=== PATIENT | female | born 1950 | race Caucasian/White ===

== ENCOUNTER 2017-01-11 18:55 | Inpatient (IN) | payer OTHER, MEDICARE ==
[2017-01-11] VITALS (8 sets, daily range): BP systolic 102–130; BP diastolic 53–72; PULSE 116–131; RESP 18–20; TEMP 98.7; O2SAT 89–95
[~2017-01-11] VITALS: Ht 162.6 cm; Wt 64.4 kg
[~2017-01-11 18:55] MED LIST: ALBU1.25 NEB; GLIM1TAB PO; LEVO750T33 PO; LISI10TA3 PO; METF1000 PO; METR500T10 PO; NIFE30TA8 PO; PRED10 PO; UMEC1AER INH; VENTAER INH
[2017-01-11] MEDS ORDERED: RESP: ALBUTEROL 2.5 MG/IPRATROPIUM 0.5 MG NEB (SCH) NEB ONE (19:45)
[2017-01-11] MEDS ORDERED: SODIUM CHLORIDE 0.9% FLUSH 10 ML FLUSH IVF PRN (19:45)
[2017-01-11] MEDS ORDERED: SODIUM CHLOR 0.9% 1000 ML INJ 1,000 ML IV ONE (19:45)
[2017-01-11 20:11] LABS: AUTOMATED NEUTROPHIL # 18.5 TH/MM3 (1.8-7.7); BASOPHIL # 0.8 TH/MM3 (0-0.2); BASOPHIL % 3.2 % (0.0-2.0); EOSINOPHIL # 2.6 TH/MM3 (0-0.4); EOSINOPHIL % 10.6 % (0.0-4.0); HEMATOCRIT 42.8 % (35.0-46.0); LYMPH % 4.8 % (9.0-44.0); LYMPHOCYTE # 1.2 TH/MM3 (1.0-4.8); MEAN CELL VOLUME 85.4 FL (80.0-100.0); MEAN CORPUSCULAR HEMOGLOBIN 27.8 PG (27.0-34.0); MEAN CORPUSCULAR HGB CONC 32.6 % (32.0-36.0); MONO % 4.2 % (0.0-8.0); NEUT % 77.2 % (16.0-70.0); PLATELET COUNT 361 TH/MM3 (150-450); RED BLOOD COUNT 5.01 MIL/MM3 (4.00-5.30); RED CELL DISTRIBUTION WIDTH 13.5 % (11.6-17.2); WHITE BLOOD COUNT 24.1 TH/MM3 (4.0-11.0)
[2017-01-11 20:12] LABS: HEMO FLAGS AUTO DIFF
[2017-01-11 20:18] LABS: CHLORIDE 95 MEQ/L (98-107); POTASSIUM 3.9 MEQ/L (3.5-5.1); SODIUM (NA) 134 MEQ/L (136-145)
[2017-01-11 20:22] LABS: ANION GAP 6 MEQ/L (5-15); BICARBONATE 33.4 MEQ/L (21.0-32.0); BLOOD UREA NITROGEN 9 MG/DL (7-18)
[2017-01-11 20:23] LABS: BLOOD, URINE SMALL (NEG); GLUCOSE,URINE 100 mg/dL (NEG); KETONE, URINE NEG (NEG); NITRITE,URINE NEG (NEG); PH, URINE 5.5 (5.0-8.5)
[2017-01-11 20:25] LABS: ALT (GPT) 12 U/L (10-53); APTT (PATIENT) 31.5 SEC (24.3-30.1); AST (GOT) 28 U/L (15-37); GLOMERULAR FILTRATION RATE 88 ML/MIN (>89); INTERNATIONAL NORMALIZED RATIO 1.2 RATIO; PROTHROMBIN TIME - PATIENT 12.8 SEC (9.8-11.6)
[2017-01-11 20:27] LABS: TOTAL BILIRUBIN ADULT 0.7 MG/DL (0.2-1.0)
[2017-01-11 20:28] LABS: ALKALINE PHOSPHATASE 92 U/L (45-117)
[2017-01-11] MEDS ORDERED: cefTRIAXone INJ 1,000 MG in SODIUM CHLORIDE 0.9% INJ 100 ML IV ONE (20:30)
[2017-01-11] MEDS ORDERED: LEVOFLOXACIN 750 MG PREMIX INJ 150 ML IV ONE (20:30)
[2017-01-11 20:34] LABS: PLATELET ESTIMATE SMEAR NORMAL (NORMAL); PLATELET MORPHOLOGY NORMAL (NORMAL); SCAN/DIFF AUTO DIFF CONFIRMED
[2017-01-11 20:37] LABS: MUCUS URINE MOD /lpf (OCC); URINE COLOR AMBER (YELLW/STRAW)
[2017-01-11 20:38] LABS: CREATINE KINASE 20 U/L (26-192)
[2017-01-11 20:38] LABS: BACTERIA, URINE MANY /hpf; CALCIUM OXALATE CRYSTALS,URINE OCC /hpf; COMMENT (UR) CULTURE INDICATED; CULTURE IF INDICATED CULTURE INDICATED; SQUAMOUS EPITHELIAL CELL URINE 0-5 /hpf (0-5)
[2017-01-11] MEDS ORDERED: SODIUM CHLORID 0.9% 500 ML INJ 500 ML IV ONE (21:15)
--- NOTE | 2017-01-11 21:25 | RADRPT ---
EXAM DATE/TIME: 01/11/2017 21:15 [place] COMPARISON: CT NEEDLE BIOPSY LUNG, LEFT, April 06, 2016, 9:50. CHEST EXPIRATION ONLY, April 06, 2016, 13:0 2. CHEST SINGLE AP, April 02, 2016, 8:22. INDICATIONS : Short of breath. MEDICAL HISTORY : Hypertension. Myocardial infarction. Diabetes mellitus type II. COPD. SURGICAL HISTORY : Appendectomy. Hysterectomy. ENCOUNTER: Initial ACUITY: 2 days PAIN SCORE: 0/10 LOCATION: Bilateral chest FINDINGS: A single view of the chest demonstrates diffuse consolidation and/or mass in the left perihilar area. There is diffuse patchy infiltrate throughout most of the right lower lung. The heart size is stable . No significant pleural effusions. No pneumothorax. Bony structures are stable.. CONCLUSION: 1. Large diffuse parenchymal consolidation or mass in the left perihilar area. 2. Prominent diffuse infiltrate throughout most of the right lower lung. Jose Elias Doll MD on January 11, 2017 at 21:22 Board Certified Radiologist. This report was verified electronically.
--- NOTE | 2017-01-11 21:41 | PD ---
HPI Chief Complaint: General Weakness Time Seen by Provider: 19:25 Travel History International Travel<30 days: No Contact w/Intl Traveler<30days: No Traveled to known affect area: No History of Present Illness HPI Patient is a 66-year-old female with history of metastatic lung cancer who comes in due to weakness. Patient fell earlier today and was unable to get herself off of the ground. She says she was trying to climb a step and she slipped and fell onto her legs. She denies hitting her head or any loss of consciousness. She says she was unable to get herself up after the incident occurred. She denies any pain from the fall. She says the only pain she has is pain in her lungs, which she has had since developing the cancer. She is not currently receiving treatment for the cancer. She has not had any fever or chills. She has some shortness of breath, which has been chronic for her. She wears oxygen at home at 3 L. PFSH Past Medical History Hx Anticoagulant Therapy: Yes (ASA 81MG TOOK TODAY) Cancer: Yes Cardiovascular Problems: Yes Congestive Heart Failure: No COPD: Yes Coronary Artery Disease: No Diabetes: Yes Patient Takes Glucophage: No Diminished Hearing: No Endocrine: Yes Genitourinary: No Hypertension: Yes Musculoskeletal: No Neurologic: No Psychiatric: No Reproductive: No Respiratory: Yes Integumentary: Yes (PSORIASIS) Myocardial Infarction: Yes (X2) Sleep Apnea: Yes Influenza Vaccination: Yes ?: Not Menopausal: Yes : 1 Para: 1 Past Surgical History Appendectomy: Yes Gynecologic Surgery: Yes (HYSTERECTOMY, MELANOMA) Hysterectomy: Yes Other Surgery: Yes Social History Alcohol Use: Yes (RARELY) Tobacco Use: No Substance Use: No Allergies-Medications (Allergen,Severity, Reaction): Coded Allergies: codeine (Verified Allergy, Severe, PASSED OUT , N/V, 01/11/17) morphine (Verified Allergy, Severe, PASSED OUT, N/V, 01/11/17) penicillin G (Verified Allergy, Severe, PASSED OUT, N/V, 01/11/17) Reported Meds & Prescriptions Reported Meds & Active Scripts Active Metronidazole 500 Mg Tab 500 Mg PO TID 3 Days Nifedipine ER 24 HR (Nifedipine) 30 Mg Tab 30 Mg PO DAILY 30 Days Reported Ventolin Hfa 18 GM Inh (Albuterol Sulfate) 90 Mcg/Act Aer 1 Puff INH Q4H PRN Anoro Ellipta Inh (Umeclidinium/Vilanterol) 62.5-25 Mcg/Act Aero 1 Puff INH DAILY Albuterol Neb (Albuterol Sulfate) 1.25 Mg/3 Ml Neb 1.25 Mg NEB Q4HR NEB PRN Review of Systems Except as stated in HPI: all other systems reviewed are Neg General / Constitutional: No: Fever, Chills HENT: No: Headaches, Lightheadedness Cardiovascular: Positive: Chest Pain or Discomfort Respiratory: Positive: Shortness of Breath Gastrointestinal: No: Nausea, Vomiting, Abdominal Pain Musculoskeletal: Positive: Weakness, No: Edema, Pain Skin: No Rash, No Change in Pigmentation Neurologic: Positive: Weakness, No: Dizziness, Syncope Physical Exam Narrative GENERAL: Awake and alert, in no acute distress. SKIN: Focused skin assessment warm/dry. HEAD: Atraumatic. Normocephalic. EYES: Pupils equal and round. No scleral icterus. ENT: Mucous membranes pink and moist. NECK: Trachea midline. No JVD. No cervical spine tenderness. CARDIOVASCULAR: Tachycardia. No murmur appreciated. RESPIRATORY: No accessory muscle use. Decreased breath sounds in both lungs. Breath sounds equal bilaterally. GASTROINTESTINAL: Abdomen soft, non-tender, nondistended. MUSCULOSKELETAL: No obvious deformities. No clubbing. No cyanosis. No edema. No tenderness to the thoracic or lumbar spine. No pelvic tenderness. NEUROLOGICAL: Awake and alert. No obvious cranial nerve deficits. Motor grossly within normal limits. Normal speech. PSYCHIATRIC: Appropriate mood and affect; insight and judgment normal. Data Data Last Documented VS Vital Signs Date Time Temp Pulse Resp B/P (MAP) Pulse Ox O2 Delivery O2 Flow Rate FiO2 01/11/17 20:02 131 20 112/69 (83) 92 Nasal Cannula 3.00 01/11/17 19:06 98.7 Orders Orders Complete Blood Count With Diff (01/11/17 19:32) Comprehensive Metabolic Panel (01/11/17 19:32) Act Partial Throm Time (Ptt) (01/11/17 19:32) Prothrombin Time / Inr (Pt) (01/11/17 19:32) Ckmb (Isoenzyme) Profile (01/11/17 19:32) Troponin I (01/11/17 19:32) Urinalysis - C+S If Indicated (01/11/17 19:32) Iv Access Insert/Monitor (01/11/17 19:32) Electrocardiogram (01/11/17 19:32) Ecg Monitoring (01/11/17 19:32) Oximetry (01/11/17 19:32) Oxygen Administration (01/11/17 19:32) Sodium Chloride 0.9% Flush (Ns Flush) (01/11/17 19:45) Sodium Chlor 0.9% 1000 Ml Inj (Ns 1000 M (01/11/17 19:45) Albuterol-Ipratropium Neb (Duoneb Neb) (01/11/17 19:45) Ceftriaxone Inj (Rocephin Inj) (01/11/17 20:30) Levofloxacin 750 Mg Premix Inj (Levaquin (01/11/17 20:30) Urine Culture (01/11/17 20:13) Chest, Single Ap (01/11/17 ) Sodium Chlorid 0.9% 500 Ml Inj (Ns 500 M (01/11/17 21:15) Labs Laboratory Tests Test 01/11/17 19:50 01/11/17 20:13 White Blood Count 24.1 TH/MM3 Red Blood Count 5.01 MIL/MM3 Hemoglobin 13.9 GM/DL Hematocrit 42.8 % Mean Corpuscular Volume 85.4 FL Mean Corpuscular Hemoglobin 27.8 PG Mean Corpuscular Hemoglobin Concent 32.6 % Red Cell Distribution Width 13.5 % Platelet Count 361 TH/MM3 Mean Platelet Volume 9.4 FL Neutrophils (%) (Auto) 77.2 % Lymphocytes (%) (Auto) 4.8 % Monocytes (%) (Auto) 4.2 % Eosinophils (%) (Auto) 10.6 % Basophils (%) (Auto) 3.2 % Neutrophils # (Auto) 18.5 TH/MM3 Lymphocytes # (Auto) 1.2 TH/MM3 Monocytes # (Auto) 1.0 TH/MM3 Eosinophils # (Auto) 2.6 TH/MM3 Basophils # (Auto) 0.8 TH/MM3 CBC Comment AUTO DIFF Differential Comment AUTO DIFF CONFIRMED Platelet Estimate NORMAL Platelet Morphology Comment NORMAL Red Cell Morphology Comment NORMAL Prothrombin Time 12.8 SEC Prothromb Time International Ratio 1.2 RATIO Activated Partial Thromboplast Time 31.5 SEC Blood Urea Nitrogen 9 MG/DL Creatinine 0.67 MG/DL Random Glucose 202 MG/DL Total Protein 7.9 GM/DL Albumin 2.8 GM/DL Calcium Level 10.6 MG/DL Alkaline Phosphatase 92 U/L Aspartate Amino Transf (AST/SGOT) 28 U/L Alanine Aminotransferase (ALT/SGPT) 12 U/L Total Bilirubin 0.7 MG/DL Sodium Level 134 MEQ/L Potassium Level 3.9 MEQ/L Chloride Level 95 MEQ/L Carbon Dioxide Level 33.4 MEQ/L Anion Gap 6 MEQ/L Estimat Glomerular Filtration Rate 88 ML/MIN Total Creatine Kinase 20 U/L Troponin I LESS THAN 0.02 NG/ML Urine Color JENNY Urine Turbidity MARKED Urine pH 5.5 Urine Specific [place] 1.027 Urine Protein 30 mg/dL Urine Glucose (UA) 100 mg/dL Urine Ketones NEG mg/dL Urine Occult Blood SMALL Urine Nitrite NEG Urine Bilirubin NEG Urine Leukocyte Esterase LARGE Urine RBC 4-9 /hpf Urine WBC 25-49 /hpf Urine WBC Clumps MOD Urine Squamous Epithelial Cells 0-5 /hpf Urine Calcium Oxalate Crystals OCC /hpf Urine Bacteria MANY /hpf Urine Mucus MOD /lpf Microscopic Urinalysis Comment CULTURE INDICATED MDM Medical Decision Making Medical Screen Exam Complete: Yes Emergency Medical Condition: Yes Medical Record Reviewed: Yes Interpretation(s) ECG shows sinus tachycardia at 130, no ST elevation or depression. Differential Diagnosis Pneumonia versus dehydration versus UTI versus electrolyte abnormality Narrative Course Patient is a 66-year-old female with history of metastatic lung cancer, comes in complaining of generalized weakness. Exam shows decreased lung sounds in both lungs. IV established, labs sent. Patient given IV fluids. Labs show an elevated white blood cell count 24. Urinalysis is positive for UTI. Chest x-ray shows evidence of pneumonia. Patient given Rocephin and Levaquin. Given 1 DuoNeb. Her tachycardia improved with fluids, and she reports being comfortable now. She'll be admitted for further management. Diagnosis Primary Impression: Pneumonia Qualified Codes: J18.9 - Pneumonia, unspecified organism Additional Impression: Urinary tract infection Qualified Codes: N30.00 - Acute cystitis without hematuria Admitting Information Admitting Physician Requests: Admit Condition: Stable Enedelia Drake MD Jan 11, 2017 21:41
[2017-01-11] MEDS ORDERED: NALOXONE HCL 0.4 MG/ML AMP IV PRN (22:45)
[2017-01-11] MEDS ORDERED: SODIUM CHLORIDE 0.9% FLUSH 10 ML FLUSH IV FLUSH PRN (22:45)
[2017-01-12] VITALS (12 sets, daily range): BP systolic 110–133; BP diastolic 60–78; PULSE 121–134; RESP 18–20; TEMP 96.9–99.8; O2SAT 88–98
[2017-01-12] MEDS ORDERED: RESP: ALBUTEROL 2.5 MG/IPRATROPIUM 0.5 MG NEB (PRN) NEB (01:15)
[2017-01-12] MEDS ORDERED: RESP: ALBUTEROL 2.5 MG/IPRATROPIUM 0.5 MG NEB (SCH) NEB (04:00)
[2017-01-12 07:06] LABS: AUTOMATED NEUTROPHIL # 16.7 TH/MM3 (1.8-7.7); BASOPHIL # 0.7 TH/MM3 (0-0.2); BASOPHIL % 3.3 % (0.0-2.0); EOSINOPHIL # 1.7 TH/MM3 (0-0.4); EOSINOPHIL % 7.8 % (0.0-4.0); HEMATOCRIT 35.3 % (35.0-46.0); LYMPH % 5.2 % (9.0-44.0); LYMPHOCYTE # 1.1 TH/MM3 (1.0-4.8); MEAN CELL VOLUME 86.2 FL (80.0-100.0); MEAN CORPUSCULAR HGB CONC 32.5 % (32.0-36.0); MONO % 6.9 % (0.0-8.0); NEUT % 76.8 % (16.0-70.0); PLATELET COUNT 280 TH/MM3 (150-450); RED BLOOD COUNT 4.09 MIL/MM3 (4.00-5.30); RED CELL DISTRIBUTION WIDTH 13.6 % (11.6-17.2); WHITE BLOOD COUNT 21.7 TH/MM3 (4.0-11.0)
[2017-01-12 07:18] LABS: POTASSIUM 3.2 MEQ/L (3.5-5.1)
[2017-01-12 07:26] LABS: BICARBONATE 30.4 MEQ/L (21.0-32.0)
[2017-01-12 07:29] LABS: HEMO FLAGS AUTO DIFF
[2017-01-12 07:54] LABS: SCAN/DIFF AUTO DIFF CONFIRMED
[2017-01-12] MEDS: RESP: ALBUTEROL 2.5 MG/IPRATROPIUM 0.5 MG NEB (SCH) NEB ×4 (07:58→20:10)
[2017-01-12] MEDS: LEVOFLOXACIN 750 MG PREMIX INJ 150 ML IV SCH (08:42)
[2017-01-12] MEDS: SODIUM CHLORIDE 0.9% FLUSH 10 ML FLUSH IV FLUSH SCH ×2 (08:42→21:00)
--- NOTE | 2017-01-12 10:02 | HHI.HP ---
[facility] Service [facility] Primary Care Physician Ramo Whitley MD Admission Diagnosis pneumonia, UTI Diagnoses: (1) Sepsis Diagnosis: Principal (2) Chronic respiratory failure with hypoxia Diagnosis: Principal (3) Pneumonia Diagnosis: Principal (4) Leukocytosis Diagnosis: Principal (5) Squamous cell carcinoma of lung, stage III Diagnosis: Secondary (6) Chronic obstructive pulmonary disease Diagnosis: Secondary Chief Complaint: Profound weakness, patient found on floor unable to get up Travel History International Travel<30 Days: No Contact w/Intl Traveler <30 Da: No Traveled to Known Affected Are: No History of Present Illness Written by Deepak Reich, acting as scribe for Dr. Castillo on 01/12/17 at 10: 01. 66-year-old female with known history of stage III squamous cell lung carcinoma, severe chronic obstructive pulmonary disease, chronic hypoxic respiratory failure, hypertension, diabetes who presented to hospital at her sister's request because she was found on the floor and unable to get up. Patient states that she hours has shortness of breath and for last 2 weeks she states that it may have gotten worse. She describes shortness of breath, dyspnea, nonproductive cough. Patient states that she has been getting weaker and she fell in her living room yesterday and laid there for approximately 5 hours. Her neighbor was able to get her up in her sister told her she needed to go to the hospital for evaluation. Patient had workup done emergency department found to have multiple abnormalities with sepsis because of tachycardia, leukocytosis, chest x-ray with consolidations. Patient is rather unfortunate with stage III squamous cell carcinoma recently diagnosed in March 2016, is undergoing treatment by Dr. Perez, at the present time they're trying to get authorized treatment of the new medication in which the patient does not know the name. Patient states that she has spoke with hospice in the past and they are not willing to pay for the new medication, hence she is not being managed by hospice at this time. Patient states that Dr. Dominguez is her jute bag clipper has not seen him in years. Patient does have oxygen dependency and is on 3 L nasal cannula at home. Patient does have stable O2 saturations on 3 L nasal cannula here in the hospital. Review of Systems Respiratory: COMPLAINS OF: Cough, Shortness of breath Neurologic: COMPLAINS OF: Poor Balance Except as stated in HPI: all other systems reviewed are Neg Past Family Social History Past Medical History Hypertension Diabetes Chronic obstructive pulmonary disease Chronic hypoxic respiratory failure, oxygen dependent with 3 L nasal cannula Stage III squamous cell carcinoma of the lung History myocardial infarction Past Surgical History Appendectomy Hysterectomy Melanoma removal Lung biopsy Reported Medications Last Impressions Chest X-Ray 01/11/17 0000 Signed Impressions: Service Date/Time: Wednesday, January 11, 2017 21:15 - CONCLUSION: 1. Large diffuse parenchymal consolidation or mass in the left perihilar area. 2. Prominent diffuse infiltrate throughout most of the right lower lung. Jose Elias Doll MD Allergies: Coded Allergies: codeine (Verified Allergy, Severe, PASSED OUT , N/V, 01/11/17) morphine (Verified Allergy, Severe, PASSED OUT, N/V, 01/11/17) penicillin G (Verified Allergy, Severe, PASSED OUT, N/V, 01/11/17) Family History Reviewed is significant for mother at age 76 from lung complications. Unknown of father's medical history Social History Patient quit smoking 7 years ago, prior to that she smoked 1-1/2 pack a cigarettes a day since she was 15 years old. Drinks alcohol rarely. Denies any illicit drugs Physical Exam Vital Signs Vital Signs Date Time Temp Pulse Resp B/P (MAP) Pulse Ox O2 Delivery O2 Flow Rate FiO2 01/12/17 08:00 97.8 128 20 120/67 (84) 91 01/12/17 08:00 121 01/12/17 07:58 90 Nasal Cannula 3.00 01/12/17 07:00 Nasal Cannula 3.00 01/12/17 04:00 99.8 129 18 128/60 (82) 89 01/12/17 03:26 121 01/12/17 01:50 124 01/12/17 01:26 91 Nasal Cannula 3.00 01/12/17 00:30 96.9 134 20 133/61 (85) 98 01/12/17 00:30 98 Nasal Cannula 3.00 01/11/17 23:22 116 18 117/53 (74) 93 01/11/17 22:39 116 18 120/60 (80) 92 Nasal Cannula 3.00 01/11/17 22:02 120 18 130/69 (89) 92 Nasal Cannula 3.00 01/11/17 21:32 120 20 116/64 (81) 94 Nasal Cannula 3.00 01/11/17 21:02 120 20 114/61 (78) 93 Nasal Cannula 3.00 01/11/17 20:32 120 18 102/62 (75) 95 Nasal Cannula 3.00 01/11/17 20:02 131 20 112/69 (83) 92 Nasal Cannula 3.00 01/11/17 19:52 130 20 92 Nasal Cannula 01/11/17 19:45 92 Nasal Cannula 3.00 01/11/17 19:06 98.7 126 18 123/72 (89) 89 Physical Exam GENERAL: Well-developed, well-nourished, in no acute distress. alert and orientated HEENT: Head is normocephalic without any lesions or masses noted. Facial features are symmetric. Eyes: Pupils equal round reactive to light. Extraocular muscles are intact. Conjunctivae were clear. Oropharyngeal: Pharynx without any erythema edema. Tongue is midline without deviation. Buccal mucosa is moist without any masses or lesions NECK: Supple without any masses. Trachea midline no deviation. No JVD, no bruits are appreciated CARDIAC: Regular rhythm, regular rate. S1/S2 are heard. No murmurs gallops or rubs. LUNGS: Diminished breath sounds noted bilaterally, absent breath sounds noted bilateral lower lung [place]. No wheeze, rhonchi or rales. No use of accessory muscles on inspiration or expiration. ABDOMEN: Soft, nontender. Nondistended. Bowel sounds heard in all 4 quadrants. No organomegaly or masses. Negative rebound, negative guarding EXTREMITIES: No edema, pulses are equal bilaterally. No cyanosis or clubbing NEUROLOGY: Mood and affect appear appropriate. Cranial nerves II through XII grossly intact. Muscle strength 5/5 in upper and lower extremities bilaterally. Deep tendon reflexes are 2+ in upper and lower extremities bilaterally. Laboratory Laboratory Tests Test 01/11/17 19:50 01/11/17 20:13 01/12/17 06:47 White Blood Count 24.1 21.7 Red Blood Count 5.01 4.09 Hemoglobin 13.9 11.4 Hematocrit 42.8 35.3 Mean Corpuscular Volume 85.4 86.2 Mean Corpuscular Hemoglobin 27.8 28.0 Mean Corpuscular Hemoglobin Concent 32.6 32.5 Red Cell Distribution Width 13.5 13.6 Platelet Count 361 280 Mean Platelet Volume 9.4 8.8 Neutrophils (%) (Auto) 77.2 76.8 Lymphocytes (%) (Auto) 4.8 5.2 Monocytes (%) (Auto) 4.2 6.9 Eosinophils (%) (Auto) 10.6 7.8 Basophils (%) (Auto) 3.2 3.3 Neutrophils # (Auto) 18.5 16.7 Lymphocytes # (Auto) 1.2 1.1 Monocytes # (Auto) 1.0 1.5 Eosinophils # (Auto) 2.6 1.7 Basophils # (Auto) 0.8 0.7 CBC Comment AUTO DIFF AUTO DIFF Differential Comment AUTO DIFF CONFIRMED AUTO DIFF CONFIRMED Platelet Estimate NORMAL Platelet Morphology Comment NORMAL Red Cell Morphology Comment NORMAL Prothrombin Time 12.8 Prothromb Time International Ratio 1.2 Activated Partial Thromboplast Time 31.5 Blood Urea Nitrogen 9 8 Creatinine 0.67 0.45 Random Glucose 202 152 Total Protein 7.9 Albumin 2.8 Calcium Level 10.6 9.4 Alkaline Phosphatase 92 Aspartate Amino Transf (AST/SGOT) 28 Alanine Aminotransferase (ALT/SGPT) 12 Total Bilirubin 0.7 Sodium Level 134 137 Potassium Level 3.9 3.2 Chloride Level 95 99 Carbon Dioxide Level 33.4 30.4 Anion Gap 6 8 Estimat Glomerular Filtration Rate 88 139 Total Creatine Kinase 20 Troponin I LESS THAN 0.02 Urine Color JENNY Urine Turbidity MARKED Urine pH 5.5 Urine Specific [place] 1.027 Urine Protein 30 Urine Glucose (UA) 100 Urine Ketones NEG Urine Occult Blood SMALL Urine Nitrite NEG Urine Bilirubin NEG Urine Leukocyte Esterase LARGE Urine RBC 4-9 Urine WBC 25-49 Urine WBC Clumps MOD Urine Squamous Epithelial Cells 0-5 Urine Calcium Oxalate Crystals OCC Urine Bacteria MANY Urine Mucus MOD Microscopic Urinalysis Comment CULTURE INDICATED Date/Time Source Procedure Growth Status 01/11/17 20:13 Urine Clean Catch Urine Culture Pending Received Result Diagram: 01/12/17 0647 01/12/17 0647 Imaging Last Impressions Chest X-Ray 01/11/17 0000 Signed Impressions: Service Date/Time: Wednesday, January 11, 2017 21:15 - CONCLUSION: 1. Large diffuse parenchymal consolidation or mass in the left perihilar area. 2. Prominent diffuse infiltrate throughout most of the right lower lung. Jose Elias Doll MD Septic Shock Reassessment Heart: Other (tachycardic) Lungs: Clear, Diminished Skin: Warm Peripheral Pulses: Bounding Right Radial Bounding Left Radial Capillary Refill: Brisk, <2 seconds Caprini VTE Risk Assessment Caprini VTE Risk Assessment: Mod/High Risk (score >= 2) Caprini Risk Assessment Model Point Value = 1 Point Value = 2 Point Value = 3 Point Value = 5 Age 41-60 Minor surgery BMI > 25 kg/m2 Swollen legs Varicose veins or History of unexplained or recurrent spontaneous Oral contraceptives or hormone replacement Sepsis (< 1 month) Serious lung disease, including pneumonia (< 1 month) Abnormal pulmonary function Acute myocardial infarction Congestive heart failure (< 1 month) History of inflammatory bowel disease Medical patient at bed rest Age 61-74 Arthroscopic surgery Major open surgery (> 45 min) Laparoscopic surgery (> 45 min) Malignancy Confined to bed (> 72 hours) Immobilizing plaster cast Central venous access Age >= 75 History of VTE Family history of VTE Factor V Leiden Prothrombin [id number] Lupus anticoagulant Anticardiolipin antibodies Elevated serum homocysteine Heparin-induced thrombocytopenia Other congenital or acquired thrombophilia Stroke (< 1 month) Elective arthroplasty Hip, pelvis, or leg fracture Acute spinal cord injury (< 1 month) Prophylaxis Regimen Total Risk Factor Score Risk Level Prophylaxis Regimen 0-1 Low Early ambulation 2 Moderate Order ONE of the following: *Sequential Compression Device (SCD) *Heparin 5000 units SQ BID 3-4 Higher Order ONE of the following medications: *Heparin 5000 units SQ TID *Enoxaparin/Lovenox 40 mg SQ daily (WT < 150 kg, CrCl > 30 mL/min) *Enoxaparin/Lovenox 30 mg SQ daily (WT < 150 kg, CrCl > 10-29 mL/min) *Enoxaparin/Lovenox 30 mg SQ BID (WT < 150 kg, CrCl > 30 mL/min) AND/OR *Sequential Compression Device (SCD) 5 or more Highest Order ONE of the following medications: *Heparin 5000 units SQ TID (Preferred with Epidurals) *Enoxaparin/Lovenox 40 mg SQ daily (WT < 150 kg, CrCl > 30 mL/min) *Enoxaparin/Lovenox 30 mg SQ daily (WT < 150 kg, CrCl > 10-29 mL/min) *Enoxaparin/Lovenox 30 mg SQ BID (WT < 150 kg, CrCl > 30 mL/min) AND *Sequential Compression Device (SCD) Assessment and Plan Problem List: (1) Sepsis ICD Code: A41.9 - Sepsis, unspecified organism Status: Acute Plan: 66-year-old female who presented to hospital because of weakness and fall at home found meets sepsis criteria with tachycardia, leukocytosis, pneumonia by x-ray, urinary tract infection -Patient started on Levaquin IV -Continue IV fluids -Obtain blood cultures -Follow urine culture -Obtain sputum culture, Legionella testing, strep pneumonia testing, influenza testing (2) Chronic respiratory failure with hypoxia ICD Code: J96.11 - Chronic respiratory failure with hypoxia Plan: Patient with chronic O2 dependency secondary to chronic affect pulmonary disease, lung carcinoma. -Continue O2 supplementation at 3 L -Continue duo nebs 4 times a day and every 2 hours as needed Case discussed with respiratory team who indicated patient's oxygenation remains below 90% (3) Squamous cell carcinoma of lung, stage III ICD Code: C34.90 - Malignant neoplasm of unspecified part of unspecified bronchus or lung Plan: Patient rather unfortunate with stage III squamous cell lung carcinoma -Patient is hospice appropriate, will consider palliative care consultation (4) Generalized weakness ICD Code: R53.1 - Weakness Plan: -Obtain physical therapy evaluation Assessment and Plan DVT prevention with subcutaneous heparin Code Status No code Physician Certification 2 Midnight Certification Type: Admission for Inpatient Services Order for Inpatient Services The services are ordered in accordance with Medicare regulations or non- Medicare payer requirements, as applicable. In the case of services not specified as inpatient-only, they are appropriately provided as inpatient services in accordance with the 2-midnight benchmark. Estimated LOS (days): 2 2 days is the estimated time the patient will need to remain in the hospital, assuming treatment plan goals are met and no additional complications. Post-Hospital Plan: Home Medical Decision Making Impression and Plan This note was transcribed by [email or web address]. I, Dr. Ines Castillo personally performed the history, physical exam, and medical decision making; and confirmed the accuracy of the information in the transcribed note. Patient will benefit from hospice care to which she is agreeable Authenticated by Dr. Ines Castillo on 01/12/17 at 10:03. Problem Qualifiers (1) Pneumonia: Qualified Codes: J18.9 - Pneumonia, unspecified organism Deepak Reich Jan 12, 2017 10:02 Ines Castillo MD Jan 12, 2017 10:04
[2017-01-12] MEDS: HEPARIN SODIUM - SQ 10,000 UNITS/ML VIAL SQ SCH ×2 (11:30→22:00)
[2017-01-12 13:14] LABS: LACTIC ACID GHOST NOT REPORTABLE
--- NOTE | 2017-01-12 17:15 | EKG ---
Date Performed: 01/11/2017 Time Performed: 19:42:15 PTAGE: 66 years EKG: SINUS TACHYCARDIA SEPTAL MYOCARDIAL INFARCTION Since previous tracing, no significant aparicio e noted ABNORMAL ECG PREVIOUS TRACING : 04/02/2016 08.12 DOCTOR: Celena Romero Interpretating Date/Time 01/12/2017 17:08:30
[2017-01-13] VITALS: BP 138/73; PULSE 138; RESP 20; TEMP 98.4; O2SAT 88
[2017-01-13 04:00] VITALS: BP 120/72; PULSE 132; RESP 24; TEMP 96.9; O2SAT 88
[2017-01-13 06:31] LABS: AUTOMATED NEUTROPHIL # 17.2 TH/MM3 (1.8-7.7); BASOPHIL # 0.3 TH/MM3 (0-0.2); BASOPHIL % 1.3 % (0.0-2.0); EOSINOPHIL # 1.6 TH/MM3 (0-0.4); EOSINOPHIL % 7.3 % (0.0-4.0); HEMATOCRIT 34.4 % (35.0-46.0); LYMPH % 8.1 % (9.0-44.0); LYMPHOCYTE # 1.8 TH/MM3 (1.0-4.8); MEAN CELL VOLUME 85.3 FL (80.0-100.0); MEAN CORPUSCULAR HEMOGLOBIN 27.8 PG (27.0-34.0); MEAN CORPUSCULAR HGB CONC 32.6 % (32.0-36.0); MONO % 7.2 % (0.0-8.0); NEUT % 76.1 % (16.0-70.0); PLATELET COUNT 285 TH/MM3 (150-450); RED BLOOD COUNT 4.03 MIL/MM3 (4.00-5.30); RED CELL DISTRIBUTION WIDTH 12.7 % (11.6-17.2); WHITE BLOOD COUNT 22.5 TH/MM3 (4.0-11.0)
[2017-01-13 06:40] LABS: POTASSIUM 3.1 MEQ/L (3.5-5.1)
[2017-01-13 06:42] LABS: HEMO FLAGS AUTO DIFF
[2017-01-13 06:47] LABS: BICARBONATE 31.3 MEQ/L (21.0-32.0); MAGNESIUM 1.7 MG/DL (1.5-2.5)
[2017-01-13 07:11] LABS: SCAN/DIFF AUTO DIFF CONFIRMED
[2017-01-13] MEDS: RESP: ALBUTEROL 2.5 MG/IPRATROPIUM 0.5 MG NEB (SCH) NEB ×3 (07:39→15:27)
[2017-01-13 07:40] VITALS: O2SAT 89
[2017-01-13 08:00] VITALS: BP 138/74; PULSE 129; RESP 24; TEMP 97.1; O2SAT 81
[2017-01-13] MEDS: LEVOFLOXACIN 750 MG PREMIX INJ 150 ML IV SCH (08:56)
[2017-01-13] MEDS: SODIUM CHLORIDE 0.9% FLUSH 10 ML FLUSH IV FLUSH SCH (08:56)
[2017-01-13] MEDS: HEPARIN SODIUM - SQ 10,000 UNITS/ML VIAL SQ SCH (09:04)
[2017-01-13] MEDS ORDERED: SODIUM CHLOR 0.9% 1000 ML INJ 1,000 ML IV ONE (10:15)
--- NOTE | 2017-01-13 10:23 | HHI.PR ---
Subjective Remarks Patient is Seen today in follow-up for shortness of breath and known malignancy. Patient still agreeable for hospice. She is not eating very much and would like a supplement. Plan of care discussed with hospice team and with family at bedside as well as [facility] nurse Objective Vitals Vital Signs Date Time Temp Pulse Resp B/P (MAP) Pulse Ox O2 Delivery O2 Flow Rate FiO2 01/13/17 08:00 97.1 129 24 138/74 (95) 81 01/13/17 07:40 89 Nasal Cannula 5.00 01/13/17 04:00 96.9 132 24 120/72 (88) 88 01/13/17 00:00 98.4 138 20 138/73 (94) 88 01/12/17 23:50 88 Nasal Cannula 4.00 01/12/17 20:10 92 Nasal Cannula 4.00 01/12/17 20:00 Nasal Cannula 3.00 01/12/17 20:00 99.3 123 20 110/78 (89) 92 01/12/17 16:00 98.2 129 20 131/66 (87) 90 01/12/17 12:00 97.2 121 20 117/68 (84) 90 I/O 01/12/17 01/12/17 01/12/17 01/13/17 01/13/17 01/13/17 07:00 15:00 23:00 07:00 15:00 23:00 Intake Total 450 ml 360 ml 60 ml Output Total 100 ml Balance 450 ml 260 ml 60 ml Intake Oral 300 ml 360 ml 60 ml IV Total 150 ml Output Urine Total 100 ml # Voids 2 3 6 5 # Bowel Movements 1 1 1 Result Diagram: 01/13/17 0515 01/13/17 0515 Objective Remarks GENERAL: This is a frail female who appears older than stated age CARDIOVASCULAR: Sinus tachycardia without murmurs, gallops, or rubs. RESPIRATORY: Short of breath at rest, bilateral sounds equal eye do not appreciate no wheezes, rales, or rhonchi. GASTROINTESTINAL: Abdomen soft, non-tender, nondistended. Normal active bowel sounds MUSCULOSKELETAL: Extremities without clubbing, cyanosis, or edema. NEURO: Alert & Oriented x4 to person, place, time, situation. Moves all ext x4 A/P Problem List: (1) Sepsis ICD Code: A41.9 - Sepsis, unspecified organism Status: Acute Plan: Continue iv Levaquin to complete course to treat pneumococcal pneumonia with sepsis (tachycardia, leukocytosis with source) Follow-up blood, cultures, urine has no growth (2) Chronic respiratory failure with hypoxia ICD Code: J96.11 - Chronic respiratory failure with hypoxia Plan: Patient on chronic O2 Continue with DuoNeb's (3) Squamous cell carcinoma of lung, stage III ICD Code: C34.90 - Malignant neoplasm of unspecified part of unspecified bronchus or lung Plan: Patient has declined any further chemotherapy regimens in the like to pursue hospice and comfort care Hospice to meet with patient and family again today (4) Generalized weakness ICD Code: R53.1 - Weakness Plan: Continue supportive care, encourage oral intake We'll add boost (5) HTN (hypertension) ICD Code: I10 - Essential (primary) hypertension Plan: Resume nifedipine Discharge Planning May be a candidate for hospice care center Ines Castillo MD Jan 13, 2017 10:23
[2017-01-13] MEDS ORDERED: NIFEdipine 30 MG SUSTAINED RELEASE TAB PO SCH (10:30)
[2017-01-13 12:00] VITALS: BP 126/75; PULSE 135; RESP 24; TEMP 98.5; O2SAT 88
--- NOTE | 2017-01-13 14:20 | HHI.DCPOC ---
Discharge Care Plan Diagnosis: (1) Chronic respiratory failure with hypoxia (2) Squamous cell carcinoma of lung, stage III Goals to Promote Your Health * To prevent worsening of your condition and complications * To maintain your health at the optimal level Directions to Meet Your Goals Take your medications as prescribed Follow your dietary instruction Follow activity as directed Keep your appointments as scheduled Take your immunizations and boosters as scheduled If your symptoms worsen call your PCP, if no PCP go to Urgent Care Center or Emergency Room Smoking is Dangerous to Your Health. Avoid second hand smoke Call the 24-hour hour crisis hotline for domestic abuse at Ines Castillo MD Jan 13, 2017 14:20
--- NOTE | 2017-01-13 14:21 | HHI.DS ---
Discharge Summary Admission Date Jan 11, 2017 at 22:31 Discharge Date: Jan 13, 2017 Admitting Diagnosis pneumonia, UTI (1) Sepsis ICD Code: A41.9 - Sepsis, unspecified organism Status: Acute (2) Chronic respiratory failure with hypoxia ICD Code: J96.11 - Chronic respiratory failure with hypoxia (3) Squamous cell carcinoma of lung, stage III ICD Code: C34.90 - Malignant neoplasm of unspecified part of unspecified bronchus or lung (4) Generalized weakness ICD Code: R53.1 - Weakness (5) HTN (hypertension) ICD Code: I10 - Essential (primary) hypertension Procedures none Brief History - From Admission Written by Deepak Reich, acting as scribe for Dr. Castillo on 01/12/17 at 10: 01. 66-year-old female with known history of stage III squamous cell lung carcinoma, severe chronic obstructive pulmonary disease, chronic hypoxic respiratory failure, hypertension, diabetes who presented to hospital at her sister's request because she was found on the floor and unable to get up. Patient states that she hours has shortness of breath and for last 2 weeks she states that it may have gotten worse. She describes shortness of breath, dyspnea, nonproductive cough. Patient states that she has been getting weaker and she fell in her living room yesterday and laid there for approximately 5 hours. Her neighbor was able to get her up in her sister told her she needed to go to the hospital for evaluation. Patient had workup done emergency department found to have multiple abnormalities with sepsis because of tachycardia, leukocytosis, chest x-ray with consolidations. Patient is rather unfortunate with stage III squamous cell carcinoma recently diagnosed in March 2016, is undergoing treatment by Dr. Perez, at the present time they're trying to get authorized treatment of the new medication in which the patient does not know the name. Patient states that she has spoke with hospice in the past and they are not willing to pay for the new medication, hence she is not being managed by hospice at this time. Patient states that Dr. Dominguez is her copy reader has not seen him in years. Patient does have oxygen dependency and is on 3 L nasal cannula at home. Patient does have stable O2 saturations on 3 L nasal cannula here in the hospital. CBC/BMP: 01/13/17 0515 01/13/17 0515 Significant Findings Laboratory Tests Test 01/11/17 19:50 01/11/17 20:13 01/12/17 06:47 01/12/17 11:08 White Blood Count 24.1 TH/MM3 (4.0-11.0) 21.7 TH/MM3 (4.0-11.0) Neutrophils (%) (Auto) 77.2 % (16.0-70.0) 76.8 % (16.0-70.0) Lymphocytes (%) (Auto) 4.8 % (9.0-44.0) 5.2 % (9.0-44.0) Eosinophils (%) (Auto) 10.6 % (0.0-4.0) 7.8 % (0.0-4.0) Basophils (%) (Auto) 3.2 % (0.0-2.0) 3.3 % (0.0-2.0) Neutrophils # (Auto) 18.5 TH/MM3 (1.8-7.7) 16.7 TH/MM3 (1.8-7.7) Monocytes # (Auto) 1.0 TH/MM3 (0-0.9) 1.5 TH/MM3 (0-0.9) Eosinophils # (Auto) 2.6 TH/MM3 (0-0.4) 1.7 TH/MM3 (0-0.4) Basophils # (Auto) 0.8 TH/MM3 (0-0.2) 0.7 TH/MM3 (0-0.2) Prothrombin Time 12.8 SEC (9.8-11.6) Activated Partial Thromboplast Time 31.5 SEC (24.3-30.1) Random Glucose 202 MG/DL (74-106) 152 MG/DL (74-106) Albumin 2.8 GM/DL (3.4-5.0) Calcium Level 10.6 MG/DL (8.5-10.1) Sodium Level 134 MEQ/L (136-145) Chloride Level 95 MEQ/L (98-107) Carbon Dioxide Level 33.4 MEQ/L (21.0-32.0) Estimat Glomerular Filtration Rate 88 ML/MIN (>89) Total Creatine Kinase 20 U/L (26-192) Troponin I LESS THAN 0.02 NG/ML Urine Color JENNY (YELLW/STRAW) Urine Turbidity MARKED (CLEAR) Urine Protein 30 mg/dL (NEG-TRACE) Urine Glucose (UA) 100 mg/dL (NEG) Urine Occult Blood SMALL (NEG) Urine Leukocyte Esterase LARGE (NEG) Urine RBC 4-9 /hpf (0-3) Urine WBC 25-49 /hpf (0-5) Urine WBC Clumps MOD (NONE) Urine Calcium Oxalate Crystals OCC /hpf (NONE) Urine Bacteria MANY /hpf (NONE) Urine Mucus MOD /lpf (OCC) Hemoglobin 11.4 GM/DL (11.6-15.3) Creatinine 0.45 MG/DL (0.50-1.00) Potassium Level 3.2 MEQ/L (3.5-5.1) Lactic Acid Level 2.3 mmol/L (0.4-2.0) Test 01/12/17 14:00 01/13/17 05:15 White Blood Count 22.5 TH/MM3 (4.0-11.0) Hemoglobin 11.2 GM/DL (11.6-15.3) Hematocrit 34.4 % (35.0-46.0) Neutrophils (%) (Auto) 76.1 % (16.0-70.0) Lymphocytes (%) (Auto) 8.1 % (9.0-44.0) Eosinophils (%) (Auto) 7.3 % (0.0-4.0) Neutrophils # (Auto) 17.2 TH/MM3 (1.8-7.7) Monocytes # (Auto) 1.6 TH/MM3 (0-0.9) Eosinophils # (Auto) 1.6 TH/MM3 (0-0.4) Basophils # (Auto) 0.3 TH/MM3 (0-0.2) Creatinine 0.43 MG/DL (0.50-1.00) Random Glucose 114 MG/DL (74-106) Potassium Level 3.1 MEQ/L (3.5-5.1) Chloride Level 96 MEQ/L (98-107) PE at Discharge GENERAL: This is a frail female who appears older than stated age CARDIOVASCULAR: Sinus tachycardia without murmurs, gallops, or rubs. RESPIRATORY: Short of breath at rest, bilateral sounds equal eye do not appreciate no wheezes, rales, or rhonchi. GASTROINTESTINAL: Abdomen soft, non-tender, nondistended. Normal active bowel sounds MUSCULOSKELETAL: Extremities without clubbing, cyanosis, or edema. NEURO: Alert & Oriented x4 to person, place, time, situation. Moves all ext x4 Pt update on day of discharge see progress note Hospital Course She was seen and treated for respiratory failure which is superimposed on chronic hypoxic respiratory failure. Patient still desires to pursue comfort care. I did coordinate with the hospice care team and family for discharge to hospice care center Pt Condition on Discharge: Guarded Discharge Disposition: Hospice/Med Facility Discharge Time: > 30 minutes Discharge Instructions DIET: Follow Instructions for: As Tolerated, No Restrictions Activities you can perform: Regular-No Restrictions Discontinued Medications: Albuterol 18 GM Inh (Ventolin Hfa 18 GM Inh) 90 Mcg/Act Aer 1 PUFF INH Q4H PRN for SHORTNESS OF BREATH, #1 INHALER 0 Refills Albuterol Neb (Albuterol Neb) 1.25 Mg/3 Ml Neb 1.25 MG NEB Q4HR NEB PRN for SHORTNESS OF BREATH, #50 NEBULE 0 Refills Metronidazole (Metronidazole) 500 Mg Tab 500 MG PO TID for Infection for 3 Days, TAB 0 Refills Nifedipine ER 24 HR (Nifedipine ER 24 HR) 30 Mg Tab 30 MG PO DAILY for blood pressure for 30 Days, TAB Umeclidinium-Vilanterol Inh (Anoro Ellipta Inh) 62.5-25 Mcg/Act Aero 1 PUFF INH DAILY for COPD, #1 INHALER 0 Refills Ines Castillo MD Jan 13, 2017 14:21
== END 2017-01-13 16:17 | disposition hospice, inpatient (51) | DRG 871 ==
LOC: PHED 18:55 → PHEDA 22:31 → PH3B 01-12 00:20
PROVIDERS: ADMIT Hospitalist; ATTEND Hospitalist
DX: A41.9 Sepsis, unspecified organism (principal); J96.21 Acute and chronic respiratory failure with hypoxia; J13 Pneumonia due to Streptococcus pneumoniae; Z99.81 Dependence on supplemental oxygen; C34.92 Malignant neoplasm of unspecified part of left bronchus or lung; J44.0 Chronic obstructive pulmonary disease with (acute) lower respiratory infection; N30.00 Acute cystitis without hematuria; E11.9 Type 2 diabetes mellitus without complications; I10 Essential (primary) hypertension; G47.30 Sleep apnea, unspecified; L40.9 Psoriasis, unspecified; Z91.81 History of falling; I25.2 Old myocardial infarction; Z85.820 Personal history of malignant melanoma of skin; Z87.891 Personal history of nicotine dependence
CPT/HCPCS: 71010; 80048; 80053; 81001; 82550; 83605; 83735; 84484; 85025; 85610; 85730; 87040; 87070; 87086; 87205; 87449; 87804; 93005; 94640; 94664; 96365; 96367; J0696; J1644; J1956; J7030; J7040